=== PATIENT | male | born 1935 | race Caucasian/White ===

== ENCOUNTER 2018-01-08 12:17 | Day surgery (SDC) | payer MEDICARE, BC ==
[~2018-01-08] VITALS: Ht 182.9 cm; Wt 69.1 kg
--- NOTE | ~2018-01-08 | OP ---
PATIENT NAME: TOBIAS MIMS MEDICAL RECORD: [id number] :36 LOCATION:[facility] ADMISSION DATE: SURGEON: ELISABETH CAPELLAN MD DATE OF OPERATION: 01/08/2018 PROCEDURE: Colonoscopy with polypectomy. REFERRING PHYSICIAN: Barry Alonso MD INDICATIONS: Mr. Mims is a delightful 82-year-old gentleman with history of chronic dysphagia (previous EGDs have shown distal esophageal rings, which has been dilated) and colon polyps. During colonoscopy on 11/08/2015, multiple colon polyps were removed, one of which was a serrated adenoma with focal low-grade atypia. He had a followup colonoscopy on 06/05/2016 that showed no evidence of a recurrent polyp and no evidenice of polyp remenant of a serrated adenoma, but additional polyps, one from the proximal ascending colon, did show a serrated adenoma. He presents for followup colonoscopy. PREMEDICATIONS: Total IV anesthesia (propofol 150 mg) (coronary artery disease). INSTRUMENT: Olympus video colonoscope, pediatric. PROCEDURE AND FINDINGS: After receiving informed consent, Mr. Mims was placed in left lateral decubitus position and sedated as per anesthesia. After achieving adequate level of sedation, digital rectal exams was performed that showed no external hemorrhoidal tags, fissures, or fistulas. Normal sphincter tone. No palpable rectal masses. Colonoscope was introduced per rectally and advanced to the cecum without difficulty. The cecum, IC valve, and appendiceal orifice were identified and appeared normal. As the colonoscope was withdrawn, careful inspection was made of the shaw of the colon. Overall, the mucosa had normal vascular and fold pattern. Multiple diverticula were seen scattered throughout the colon. At the splenic flexure, was a 0.3-cm sessile polyp, removed with biopsy forcep technique. Retroflexion in rectum showed mild internal hemorrhoids. A good prep was present. Mr. Mims tolerated the procedure well. No immediate complications. Withdrawal time was 6 minutes. ASSESSMENT: 1. Mild pandiverticulosis coli. 2. Splenic flexure polyp, status post polypectomy. 3. Small internal hemorrhoids. RECOMMENDATIONS: 1. Followup histopathology. 2. High-fiber diet. 3. Colonoscopy as needed. TRANSINT:[id number] Voice Confirmation ID: [id number] DOCUMENT ID: [id number] OPERATIVE REPORT [id number] MIMS,TOBIAS ELISABETH OLIVEIRA MD at 1206 CC: BARRY ALONSO [id number] DICTATION DATE: 01/08/181705 [employer] MANAGER: 01/08/18 1828 [facility] 01/08/18 [facility] [address] [place] [address]
[~2018-01-08 12:17] MED LIST: ACETAMINOPHEN500 M1 PO; ATIVAN1 MG PO; CARVEDILOL TAB 3.1 PO; CENTRUM COMPLE1 EACH PO; CORDARONE200 MG PO; ISOSORBIDE MONO30 M1 PO; MEGACE40 MG PO; OXYCONTIN30 MG PO; PRILOSEC20 MG PO; REMERON15 MG PO; SYNTHROID25 MCG PO; VITAMIN B-121000 MCG PO
[2018-01-08 13:02] LABS: BASOPHILS 0.3 % (0-2); HEMATOCRIT 44.3 % (42.0-54.0); HEMOGLOBIN 14.5 g/dL (13.5-17.5); LYMPHOCYTES 34.4 % (15-50); MCH 32.2 pg (26.0-34.0); MCHC 32.7 g/dL (31.0-37.0); MCV 98.2 fL (80.0-100.0); MEAN PLATELET VOLUME 11.1 fL (7.4-10.4); MONOCYTES 8.5 % (2-11); NEUTROPHILS 53.8 % (40-80); RBC 4.51 10x6/uL (4.20-6.10); RDW 14.2 % (11.5-14.5); WBC 11.5 10x3/uL (4.8-10.8)
[2018-01-08 13:23] LABS: PLATELET COUNT 203 10x3/uL (130-400)
[2018-01-08 13:28] LABS: CALC OSMOLALITY 283 mosm/kg (275-300); CALCIUM 9.6 mg/dL (8.5-10.1); CARBON DIOXIDE 25.7 mmol/L (21.0-32.0); CHLORIDE - SERUM 105 mmol/L (98-107); GLUCOSE 80 mg/dL (74-106); POTASSIUM - SERUM 4.5 mmol/L (3.5-5.1); SODIUM 143 mmol/L (136-145); UREA NITROGEN 12 mg/dL (7-18); eGFR NON AFRICAN AMERICAN 76 mL/min (90-120)
[2018-01-08 13:50] VITALS: BP 163/95; Ht 182.9 cm; Wt 69.1 kg
== END 2018-01-08 18:04 | disposition home or self-care (01) ==
LOC: D.OPS 12:17
PROVIDERS: Anesthesiology
DX: K63.5 Polyp of colon (principal); I10 Essential (primary) hypertension; Z95.0 Presence of cardiac pacemaker; I25.10 Atherosclerotic heart disease of native coronary artery without angina pectoris; K64.8 Other hemorrhoids; K57.90 Diverticulosis of intestine, part unspecified, without perforation or abscess without bleeding

== ENCOUNTER 2018-01-22 09:36 | Day surgery (SDC) | payer MEDICARE, BC ==
[~2018-01-22] VITALS: Ht 182.9 cm; Wt 65.9 kg
--- NOTE | ~2018-01-22 | OP ---
PATIENT NAME: TOBIAS MIMS MEDICAL RECORD: [id number] :36 LOCATION:[facility] ADMISSION DATE: SURGEON: ELISABETH CAPELLAN MD DATE OF OPERATION: 01/22/2018 PROCEDURE: EGD with biopsy and esophageal balloon dilatation. REFERRING PHYSICIAN: Barry Alonso MD INDICATIONS: Mr. Mims is a pleasant 82-year-old gentleman with a history of coronary artery disease, pacemaker placement with a history of dysphagia. His last EGD 11/08/2015 showed several distal esophageal rings, which were dilated with esophageal balloon to a 60-Arabic. Small hiatal hernia and bilious gastritis with gastric anatomy consistent with post-Billroth I, (10/19/2014 Mr. 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 Mae). He presents for outpatient EGD. PREMEDICATIONS: Total IV anesthesia (coronary artery disease, cardiac arrhythmia, ASA 3), propofol 100 mg. INSTRUMENT: Olympus video gastroscope and an esophageal balloon dilator 60-Arabic. PROCEDURE AND FINDINGS: After receiving informed consent, Mr. Mims' posterior pharynx was anesthetized with Cetacaine spray, placed in left lateral decubitus position and sedated as per anesthesia. After achieving an adequate level of sedation, gastroscope was introduced per orally and advanced to the duodenum without difficulty. The esophageal mucosa was without erythema or ulcers. In the distal third of the esophagus were 2 partial rings, nonobstructive. A small sliding type hiatal hernia was noted. Gastric anatomy was consistent with Billroth I with bile associated gastritis with diffuse erythema of the gastric mucosa. Biopsies were taken from the distal body of the stomach and along the gastric small bowel anastomosis. The small bowel mucosa was without erythema or ulcers and the anastomosis was "wide open without stricture." An esophageal balloon dilator was then introduced through the gastroscope and the balloon was positioned midway across the distal third of the esophagus insufflated to a 60-Arabic size, held in place on the appropriate PSI for 60 seconds, then deflated with good results. Subsequently, biopsies were taken from the distal and mid esophagus. Gastroscope was withdrawn. Mr. Mims tolerated the procedure well, no immediate complications. ASSESSMENT: 1. Distal esophageal ring, status post esophageal balloon dilatation. 2. Small sliding type hiatal hernia. 3. Bilious gastritis. 4. History of Billroth I. RECOMMENDATIONS: 1. Follow up histopathology. 2. Soft diet today. 3. I would avoid nonsteroidal anti-inflammatory drugs. 4. Continue omeprazole 20 mg p.o. daily. 5. If dysphagia persists despite esophageal balloon dilatation, recommend video fluoroscopic swallowing study. OPERATIVE REPORT [id number] MIMSTOBIAS TRANSINT:[id number] Voice Confirmation ID: [id number] DOCUMENT ID: [id number] ELISABETH CAPELLAN MD at 1832 CC: BARRY ALONSO [id number] DICTATION DATE: 01/22/18 1251 [employer] MANAGER: 01/22/18 1305 [facility] 01/22/18 [place] [id number] [place] [address]
[2018-01-22 09:56] LABS: BASOPHILS 0.4 % (0-2); EOSINOPHILS 2.8 % (0-7); HEMATOCRIT 45.3 % (42.0-54.0); HEMOGLOBIN 14.9 g/dL (13.5-17.5); IMMATURE GRANULOCYTES 0.5 % (0-5); LYMPHOCYTES 35.4 % (15-50); MCH 32.3 pg (26.0-34.0); MCHC 32.9 g/dL (31.0-37.0); MCV 98.1 fL (80.0-100.0); MEAN PLATELET VOLUME 10.8 fL (7.4-10.4); MONOCYTES 8.8 % (2-11); NEUTROPHILS 52.1 % (40-80); PLATELET COUNT 207 10x3/uL (130-400); RBC 4.62 10x6/uL (4.20-6.10); RDW 14.1 % (11.5-14.5); WBC 9.8 10x3/uL (4.8-10.8)
[2018-01-22 10:01] LABS: APTT 30.8 SECONDS (22.8-39.4); INR 1.03 (0.85-1.17); PROTIME 13.1 SECONDS (11.6-15.0)
[2018-01-22 10:08] LABS: CALC OSMOLALITY 286 mosm/kg (275-300); CALCIUM 9.3 mg/dL (8.5-10.1); CARBON DIOXIDE 28.9 mmol/L (21.0-32.0); CHLORIDE - SERUM 108 mmol/L (98-107); GLUCOSE 88 mg/dL (74-106); POTASSIUM - SERUM 3.8 mmol/L (3.5-5.1); SODIUM 144 mmol/L (136-145); UREA NITROGEN 14 mg/dL (7-18); eGFR NON AFRICAN AMERICAN 76 mL/min (90-120)
[2018-01-22 11:44] VITALS: BP 128/77; Ht 182.9 cm; Wt 65.9 kg
== END 2018-01-22 14:20 | disposition home or self-care (01) ==
LOC: D.OPS 09:36
PROVIDERS: Anesthesiology
DX: R13.10 Dysphagia, unspecified (principal); I25.10 Atherosclerotic heart disease of native coronary artery without angina pectoris; K22.2 Esophageal obstruction

== ENCOUNTER → 2019-07-21 10:32 | Outpatient (CLI) | payer MEDICARE ==
[2018-01-22 11:44] VITALS: BMI 19.7
== END | disposition home or self-care (01) ==
LOC: D.CT 10:32
PROVIDERS: ATTEND Family Medicine
DX: C30.0 Malignant neoplasm of nasal cavity (principal)